=== PATIENT | male | born 1965 | race Caucasian/White ===

== ENCOUNTER 2020-04-13 18:04 | Emergency (ER) | payer OTHER ==
--- OUTSIDE RECORDS SUMMARY | 2020-04-13 18:06 | XMS REPORT | Summary of Care ---
:1965 Author Organization [facility] - Health Address [address] [place] [address] Care Team Providers Name Role Phone MD Keya Primary Care Provider Encounter Details Date Type Department Care Team Description 01/14/2020 Orders Only [facility] Doctor Unassigned, No [address] [facility] [place] [address] [address] [place] [address] Allergies No Known Allergiesdocumented as of this encounter (statuses as of 01/20/2020) Medications Medication Sig Dispensed Refills Start Date End Date Status albuterol 90 Inhale 2 Puffs 8.5 g 0 06/13/2017 A ctive mcg/actuation every 6 (six) inhalerIndications: hours as needed Dyspnea, unspecified type for Wheezing or Shortness of Breath. Compression Socks, Medium xtra large 1 Each 2 10/24/2017 Active Misc compression socks gemfibrozil 600 mg Take 1 tablet by 60 tablet 3 10/24/2017 Active tabletIndications: mouth 2 (two) Hypertriglyceridemia times daily before breakfast and dinner. losartan-hydrochlorothiaz Take 1 tablet by 90 tablet 3 018 Active ulis 50-12.5 mg per mouth daily. tabletIndications: Hypertension, unspecified type metFORMIN 1,000 mg Take 1 tablet by 180 tablet 2 10/24/2017 Active tabletIndications: mouth 2 (two) Diabetes mellitus type 2 times daily with in obese meals. terbinafine HCl 250 mg Take 1 tablet by 30 tablet 1 12/24/2017 Active tabletIndications: Tinea mouth daily. pedis of both feet furosemide 20 mg tablet Take 1 tablet by 90 tablet 0 10/23/201 8 Active mouth daily. atorvastatin 40 mg tablet Take 40 mg by 0 02/11/2019 Active mouth daily. glipiZIDE 5 mg tablet TAKE 1 TABLET BY 0 02/11/2019 Active MOUTH TWICE A DAY 30 MINUTES BEFORE MEALS diclofenac 75 mg EC Take 1 tablet by 60 tablet 0 01/12/2020 Active tabletIndications: mouth 2 (two) 20 Primary osteoarthritis of times daily with left knee meals for 30 days. documented as of this encounter (statuses as of 01/20/2020) Active Problems No known active problemsdocumented as of this encounter (statuses as of 01/20/2020) Social History Tobacco Use Types Packs/Day Years Used Date Former Smoker Cigars 10 Smokeless Tobacco: Never Used Alcohol Use Drinks/Week oz/Week Comments Yes 6 Standard drinks or equivalent 6.0 Sex Assigned at Date Recorded Not on file COVID-19 Exposure Response Date Recorded In the last month, have you been in contact with No / Unsure 01/11/2020 4:23 PM CDT someone who was confirmed or suspected to have Coronavirus / COVID-19? documented as of this encounter Last Filed Vital Signs Not on filedocumented in this encounter Plan of Treatment Health Maintenance Due Date Last Done Comments DTaP,Tdap,and Td Vaccines (1 - 1984 Tdap) COLON CANCER SCREENING ANNUAL 01/01/2016 FIT/FOBT COLON CANCER SCREENING FIT DNA 01/01/2016 EVERY 3 YEARS COLON CANCER SCREENING 01/01/2016 SIGMOIDOSCOPY EVERY 5 YEARS Zoster Recombinant Vaccine 01/01/2016 (SHINGRIX) (1 of 2) INFLUENZA VACCINE (#1) 2019 Depression Screening 04/19/2020 04/19/2019 COLONOSCOPY 02/14/2027 02/14/2017 (Declined) Colorectal Cancer Screening 02/14/2027 PNEUMOCOCCAL 0-64 YEARS Aged Out No longe r eligible based COMBINED SERIES on patient's age to complete this to [facility] documented as of this encounter Procedures Procedure Name Priority Date/Time Associated Diagnosis Comme nts MEDICAL Routine 01/14/2020 12:01 AM CDT RELEASE/CLEARANCE FORMS documented in this encounter Results Not on filedocumented in this encounter Insurance Payer Benefit Plan Subscriber ID Effective Dates Phone Address Type / Group [id number] [phone] [address] PPO/POS [place] - OUT OF t [id number] [place] [address] documented as of this encounter
--- OUTSIDE RECORDS SUMMARY | 2020-04-13 18:06 | XMS REPORT | Summary of Care ---
:1965 Author Organization [facility] Address [address] [place] [address] Care Team Providers Name Role Phone MD Keya Primary Care Provider Reason for Visit Reason Comments Refill Request Encounter Details Date Type Department Care Team Description 02/03/2020 Refill [facility] Orthopaedic Bisi Durant S, PAC Refill Request Surgery- [place] [address] [facility] [address] [facility], [place] [address] [place] [address] [phone] Allergies No Known Allergiesdocumented as of this encounter (statuses as of 02/03/2020) Medications Medication Sig Dispensed Refills Start End Status Date Date albuterol 90 Inhale 2 Puffs 8.5 g 0 06/13/19 Ac tive mcg/actuation every 6 (six) 18 inhalerIndications: hours as Dyspnea, unspecified needed for type Wheezing or Shortness of Breath. Compression Socks, xtra large 1 Each 2 10/25/19 Active Medium Misc compression 18 socks gemfibrozil 600 mg Take 1 tablet 60 tablet 3 10/25/19 Active tabletIndications: by mouth 2 18 Hypertriglyceridemia (two) times daily before breakfast and dinner. losartan-hydrochlorothia Take 1 tablet 90 tablet 3 10/25/19 Active zide 50-12.5 mg per by mouth 18 tabletIndications: daily. Hypertension, unspecified type metFORMIN 1,000 mg Take 1 tablet 180 tablet 2 10/25/19 Active tabletIndications: by mouth 2 18 Diabetes mellitus type 2 (two) times in obese daily with meals. terbinafine HCl 250 mg Take 1 tablet 30 tablet 1 12/25/19 Active tabletIndications: Tinea by mouth 18 pedis of both feet daily. furosemide 20 mg tablet Take 1 tablet 90 tablet 0 02/20/20 Active by mouth 18 daily. atorvastatin 40 mg Take 40 mg by 0 02/12/20 Active tablet mouth daily. 19 glipiZIDE 5 mg tablet TAKE 1 TABLET 0 02/12/20 Active BY MOUTH TWICE 19 A DAY 30 MINUTES BEFORE MEALS DICLOFENAC 75 mg EC TAKE 1 TABLET 60 tablet 0 02/03/20 Active tabletIndications: BY MOUTH 2 20 Primary osteoarthritis (TWO) TIMES of left knee DAILY WITH MEALS. diclofenac 75 mg EC Take 1 tablet 60 tablet 0 01/12/20 Discontinued tabletIndications: by mouth 2 20 020 Primary osteoarthritis (two) times of left knee daily with meals for 30 days. documented as of this encounter (statuses as of 02/03/2020) Active Problems No known active problemsdocumented as of this encounter (statuses as of 02/03/2020) Social History Tobacco Use Types Packs/Day Years [...] on patient's age to complete this to pic documented as of this encounter Results Not on filedocumented in this encounter Visit Diagnoses Diagnosis Primary osteoarthritis of left knee Primary localized osteoarthrosis, lower leg documented in this encounter Insurance Payer Benefit Plan Subscriber ID Effective Dates Phone Address Type / Group [facility] [id number] 2018-[place] [phone] [address] PPO/POS [place] - OUT OF t 87 [id number] [place] [address] documented as of this encounter
--- OUTSIDE RECORDS SUMMARY | 2020-04-13 18:07 | XMS REPORT | Continuity of Care Document ---
:[address] [facility] t Address [address] [place] [address] Care Team Providers Name Role Phone Nikolai Archer Attending Clinician Doctor Unassigned, Name Attending Clinician Unavailable Provider, Urgent Care Attending Clinician Unavailable Singer KERN Attending Clinician Problems This patient has no known problems. Allergies, Adverse Reactions, Alerts This patient has no known allergies or adverse reactions. Medications This patient has no known medications. Procedures This patient has no known procedures. Encounters Start End Encounter Admission Attending Care Care Encounter Source Date/Time Date/Time Type Type Clinicians Facility Department ID 2020-02-03 2020-02-03 Refill HENRIETTA Durant [id number] 00:00:00 00:00:00 [facility] [id number] Surgical [id number] Specialti [phone] [address] [place] 2020-01-14 2020-01-14 Orders Doctor JENNIFER [id number] 12 00:00:00 00:00:00 Only Unassigned, LISA [id number] [place] [facility] [id number] [id number] 2020-01-11 2020-01-11 Urgent ProviderHENRIETTA [id number] 16:19:08 17:05:12 Care [facility] [id number] Care [place] [id number] Professio [phone] nal [address] 2019-06-02 2019-06-02 Emergency [place] [facility] [id number] 05:43:39 07:01:00 Tej Carrera [id number] [place] [id number] [place] [phone] 084 Results This patient has no known results.
[2020-04-13 18:37] LABS: Absolute Lymphocytes (CBC) 1.9 K/uL (0.7-4.9); Basophils % 0.7 % (0-1.3); Lymphocytes % 26.4 % (15.3-44.8); MPV 9.7 fL (7.6-11.3); RBC Red Blood Cell Count 4.78 M/uL (4.33-5.43)
[2020-04-13] MEDS ORDERED: METHYLPREDNISOLONE 125 MG INJ ONE (18:43)
[2020-04-13] MEDS ORDERED: NA CHLORIDE 0.9% 1,000 ML ONE (18:44)
[2020-04-13] MEDS ORDERED: FAMOTIDINE 20 MG/2 ML VIAL IV ONE (18:44)
[2020-04-13] MEDS ORDERED: DIPHENHYDRAMINE 50 MG/ML VIAL ONE (18:44)
[2020-04-13 18:53] LABS: BUN Blood Urea Nitrogen 13 mg/dL (7-18); Bicarbonate 32 mmol/L (21-32); Glucose Level 227 mg/dL (74-106); Potassium 3.8 mmol/L (3.5-5.1); Sodium Level 142 mmol/L (136-145)
--- NOTE | 2020-04-13 19:49 | RAD REPORT ---
EXAM DESCRIPTION: CT - Head Brain Wo Cont - 04/13/2020 7:33 pm CLINICAL HISTORY: Headache COMPARISON: None. TECHNIQUE: Computed axial tomography of the head was obtained. IV contrast was not requested. All CT scans are performed using dose optimization technique as appropriate and may include automated exposure control or mA/KV adjustment according to patient size. FINDINGS: An intracranial bleed is not seen . The ventricles are normal in caliber. No extra-axial fluid collection is noted. Fluid within the sinuses/ mastoids is not seen. IMPRESSION: No acute intracranial abnormality is seen. If patient's symptoms persist MRI of the bra in would be recommended.
[2020-04-13] MEDS ORDERED: ALBUTEROL 2.5 MG/3 ML NEB SOL ONE (20:17)
[2020-04-13] MEDS ORDERED: MECLIZINE HCL 12.5 MG TAB ONE (20:17)
--- NOTE | 2020-04-13 20:28 | EDPHYS ---
Physician Documentation [facility] Name: Hilton Macdonald Age: 54 yrs Sex: Male : 1965 Arrival Date: 04/13/2020 Time: 18:07 Bed 5 Private MD: ED Physician Edwin Dee HPI: 04/13 20:59 This 54 yrs old Male presents to ER via EMS with complaints of Allergic kb Reaction. 20:59 The patient presents with dizziness, feels throat is swollen. Onset: The kb symptoms/episode began/occurred just prior to arrival. Associated signs and symptoms: Pertinent positives: light headed, swelling. Possible causes: At home the patient or guardian has treated the symptoms with nothing. Severity of symptoms: At their worst the symptoms were mild moderate in the emergency department the symptoms are unchanged. The patient has not experienced similar symptoms in the past. The patient has not recently seen a physician. Pt reports allergic reaction to Ozympic. States he was at work and started feeling lightheaded, dizzy and like his throat was closing up. EMT reports pt had wheezing from his throat when they arrived, but that has since resolved. Pt reports dizziness when he turns his head. States it still feels like his throat is swollen, but it is getting better. . Historical: - Allergies: 18:11 No Known Drug Allergies; sv - Home Meds: 18:25 ozempic [Active]; ph - PMHx: 18:11 LEG CRAMPS; Obesity; sv 18:25 Diabetes - NIDDM; ph - PSHx: 18:11 Appendectomy; Knee surgery; sv - Immunization history:: Adult Immunizations unknown. - Social history:: Smoking status: Patient denies any tobacco usage or history of. ROS: 20:59 Constitutional: Negative for fever, chills, and weight loss, Cardiovascular: Negative kb for chest pain, palpitations, and edema, Abdomen/GI: Negative for abdominal pain, nausea, vomiting, diarrhea, and constipation, Back: Negative for injury and pain, MS/Extremity: Negative for injury and deformity, Skin: Negative for injury, rash, and discoloration. 20:59 ENT: Positive for throat swelling. 20:59 Respiratory: Positive for shortness of breath. 20:59 Neuro: Positive for dizziness. Exam: 21:03 Constitutional: This is a well developed, well nourished patient who is awake, alert, kb and in no acute distress. Head/Face: Normocephalic, atraumatic. Eyes: Pupils equal round and reactive to light, extra-ocular motions intact. Lids and lashes normal. Conjunctiva and sclera are non-icteric and not injected. Cornea within normal limits. Periorbital areas with no swelling, redness, or edema. ENT: Nares patent. No nasal discharge, no septal abnormalities noted. Tympanic membranes are normal and external auditory canals are clear. Oropharynx with no redness, swelling, or masses, exudates, or evidence of obstruction, uvula midline. Mucous membranes moist. Neck: Trachea midline, no thyromegaly or masses palpated, and no cervical lymphadenopathy. Supple, full range of motion without nuchal rigidity, or vertebral point tenderness. No Meningismus. Chest/axilla: Normal chest wall appearance and motion. Nontender with no deformity. No lesions are appreciated. Cardiovascular: Regular rate and rhythm with a normal S1 and S2. No gallops, murmurs, or rubs. Normal PMI, no JVD. No pulse deficits. Respiratory: Lungs have equal breath sounds bilaterally, clear to auscultation and percussion. No rales, rhonchi or wheezes noted. No increased work of breathing, no retractions or nasal flaring. Abdomen/GI: Soft, non-tender, with normal bowel sounds. No distension or tympany. No guarding or rebound. No evidence of tenderness throughout. Skin: Warm, dry with normal turgor. Normal color with no rashes, no lesions, and no evidence of cellulitis. MS/ Extremity: Pulses equal, no cyanosis. Neurovascular intact. Full, normal range of motion. Neuro: Awake and alert, GCS 15, oriented to person, place, time, and situation. Cranial nerves II-XII grossly intact. Motor strength 5/5 in all extremities. Sensory grossly intact. Cerebellar exam normal. Normal gait. Vital Signs: 18:23 BP 152 / 91; Pulse 90; Resp 20; Temp 98.0; Pulse Ox 95% on R/A; Weight 179.17 kg; ph Height 5 ft. 10 in. (177.80 cm); 18:51 BP 135 / 71; Pulse 79; Resp 18; Pulse Ox 94% on R/A; ph 18:23 Body Mass Index 56.68 (179.17 kg, 177.80 cm) ph MDM: 18:08 Patient medically screened. kb 21:04 Data reviewed: vital signs, nurses notes. Data interpreted: Pulse oximetry: on room air kb is 94 %. Interpretation: normal. Counseling: I had a detailed discussion with the patient and/or guardian regarding: the historical points, exam findings, and any diagnostic results supporting the discharge/admit diagnosis, lab results, radiology results, the need for outpatient follow up, a family practitioner, to return to the emergency department if symptoms worsen or persist or if there are any questions or concerns that arise at home. ED course: Pt feeling better after treatmetn. 04/13 18:09 Order name: CBC with Diff; Complete Time: 18:49 kb 04/13 18:09 Order name: Basic Metabolic Panel; Complete Time: 18:54 kb 04/13 18:58 Order name: CT Head Brain wo Cont; Complete Time: 19:51 kb 04/13 18:09 Order name: IV Start; Complete Time: 18:28 kb Administered Medications: 18:48 Drug: SOLU-Medrol 125 mg Route: IVP; Site: right antecubital; ph 18:48 Drug: Benadryl 12.5 mg Route: IVP; Site: right antecubital; ph 18:48 Drug: Pepcid 20 mg Route: IVP; Site: right antecubital; ph 18:48 Drug: NS 0.9% 1000 ml Route: IV; Rate: 1000 ml; Site: right antecubital; ph 20:04 Drug: Albuterol 2.5 mg Route: Inhalation; mg2 20:05 Drug: Meclizine 25 mg Route: PO; mg2 Disposition: 04/14 11:55 Co-signature as Attending Physician, Edwin Dee MD I agree with the assessment and neil plan of care. Disposition: 04/13/20 20:27 Discharged to Home. Impression: Dizziness and giddiness, Headache. - Condition is Stable. - Discharge Instructions: Vertigo, Nwok-bd-Dtay, General Headache Without Cause, Eklg-gy-Cksa, Dizziness, Qssw-aa-Gkvs. - Prescriptions for Meclizine 25 mg Oral Tablet - take 1 tablet by ORAL route every 8 hours As needed; 30 tablet. Prednisone 20 mg Oral Tablet - take 1 tablet by ORAL route once daily for 5 days; 5 tablet. Albuterol Sulfate 90 mcg/actuation - inhale 1-2 puff by INHALATION route every 4-6 hours; 1 Inhaler. - Medication Reconciliation Form, Thank You Letter, Antibiotic Education, Prescription Opioid Use form. - Follow up: Emergency Department; When: As needed; Reason: Worsening of condition. Follow up: Private Physician; When: 2 - 3 days; Reason: Recheck today's complaints, Continuance of care, Re-evaluation by your physician. Signatures: Dispatcher [employer] EDMS Celina Castaneda, SILVINO-C TELEVISION SERVICE ENGINEER-Kerrie Bryson, RN RN Edwin Dee MD MD cha Hall, Patricia, RN RN Vickey Lemos mw2 Perez Guillermo RN RN mg2 Corrections: (The following items were deleted from the chart) 04/13 20:47 20:27 04/13/2020 20:27 Discharged to Home. Impression: Dizziness and giddiness; mw2 Headache. Condition is Stable. Forms are Medication Reconciliation Form, Thank You Letter, Antibiotic Education, Prescription Opioid Use. Follow up: Emergency Department; When: As needed; Reason: Worsening of condition. Follow up: Private Physician; When: 2 - 3 days; Reason: Recheck today's complaints, Continuance of care, Re-evaluation by your physician. kb
--- NOTE | 2020-04-13 20:28 | ER ---
Nurse's Notes [facility] [place] Name: Hilton Macdonald Age: 54 yrs Sex: Male : 1965 Arrival Date: 04/13/2020 Time: 18:07 Bed 5 Private MD: Diagnosis: Dizziness and giddiness;Headache Presentation: 04/13 18:07 Chief complaint: EMS states: called out for possible allergic reaction to Ozempic IM sv today. He takes it weekly and this week his MD increased his dose. He feels like his throat is swelling. BP 1497 HR-86 100% NRB but not on O2 at this time. BS-234. Coronavirus screen: Client denies travel out of the [place] in the last 14 days. At this time, the client does not indicate any symptoms associated with coronavirus-19. Ebola Screen: No symptoms or risks identified at this time. Onset: The symptoms/episode began/occurred suddenly, 40 minute(s) ago. Anaphylaxis evaluation, the patient reports or I have noted the following symptoms which indicate a significant risk of anaphylaxis:. Risk Assessment: Do you want to hurt yourself or someone else? Patient reports no desire to harm self or others. Onset of symptoms was April 13, 2020. 18:07 Method Of Arrival: EMS: [facility] sv 18:07 Acuity: RUDY 3 sv 18:49 Initial Sepsis Screen: Does the patient meet any 2 criteria? No. Patient's initial ph sepsis screen is negative. Does the patient have a suspected source of infection? No. Patient's initial sepsis screen is negative. Historical: - Allergies: 18:11 No Known Drug Allergies; sv - Home Meds: 18:25 ozempic [Active]; ph - PMHx: 18:11 LEG CRAMPS; Obesity; sv 18:25 Diabetes - NIDDM; ph - PSHx: 18:11 Appendectomy; Knee surgery; sv - Immunization history:: Adult Immunizations unknown. - Social history:: Smoking status: Patient denies any tobacco usage or history of. Screenin:49 Abuse screen: Denies threats or abuse. Denies injuries from another. Nutritional ph screening: No deficits noted. Tuberculosis screening: No symptoms or risk factors identified. Fall Risk None identified. Assessment: 18:50 General: Appears in no apparent distress. comfortable, obese, well groomed, Behavior is ph calm, cooperative, appropriate for age, Denies fever, chills. Pain: Denies pain. Neuro: Level of Consciousness is awake, alert, obeys commands, Oriented to person, place, time, situation, Reports blurred vision dizziness, weakness. Cardiovascular: Capillary refill < 3 seconds in bilateral fingers Patient's skin is warm and dry. Respiratory: Reports shortness of breath "tightness in throat" Airway is patent Respiratory effort is even, unlabored, Respiratory pattern is regular, symmetrical. GI: No signs and/or symptoms were reported involving the gastrointestinal system. Derm: Skin is intact, Skin is pink, warm \\T\\ dry. Musculoskeletal: Circulation, motion, and sensation intact. Range of motion: intact in all extremities. Vital Signs: 18:23 BP 152 / 91; Pulse 90; Resp 20; Temp 98.0; Pulse Ox 95% on R/A; Weight 179.17 kg; ph Height 5 ft. 10 in. (177.80 cm); 18:51 BP 135 / 71; Pulse 79; Resp 18; Pulse Ox 94% on R/A; ph 18:23 Body Mass Index 56.68 (179.17 kg, 177.80 cm) ph ED Course: 18:07 Patient arrived in ED. sv 18:08 Cel[facility]C [facility] kb 18:08 Edwin Dee MD is Attending Physician. kb 18:09 Alena Treviño, SWEETIE is Primary Nurse. ph 18:11 Triage completed. sv 18:11 Arm band placed on. sv 18:28 Patient has correct armband on for positive identification. Placed in gown. Bed in low mh5 position. Call light in reach. Side rails up X 1. operations representative on. Pulse ox on. NIBP on. 18:28 CBC with Diff Sent. mh5 18:28 Basic Metabolic Panel Sent. 5 18:28 Initial lab(s) drawn, by me, sent to lab. Inserted saline lock: 20 gauge in right 5 antecubital area, using aseptic technique. Blood collected. 19:32 CT Head Brain wo Cont In Process Unspecified. EDMS Administered Medications: 18:48 Drug: SOLU-Medrol 125 mg Route: IVP; Site: right antecubital; ph 18:48 Drug: Benadryl 12.5 mg Route: IVP; Site: right antecubital; ph 18:48 Drug: Pepcid 20 mg Route: IVP; Site: right antecubital; ph 18:48 Drug: NS 0.9% 1000 ml Route: IV; Rate: 1000 ml; Site: right antecubital; ph 20:04 Drug: Albuterol 2.5 mg Route: Inhalation; mg2 20:05 Drug: Meclizine 25 mg Route: PO; mg2 Outcome: 20:27 Discharge ordered by . kb 20:47 Patient left the ED. mw2 Signatures: Dispatcher [employer] EDMS Celina Castaneda, SILVINO-C CALENDER MACHINE OPERATOR-Kerrie Bryson RN RN Alena Treviño RN RN Erica Duarte [facility] Vickey Lemos 2 Perez Guillermo RN RN mg2
[2020-04-15 20:40] VITALS: TEMP 98
[2020-04-15 21:02] VITALS: BP 135/71; O2SAT 94
== END 2020-04-13 20:47 | disposition home or self-care (01) ==
LOC: ER 18:04
DX: R51.9 Headache, unspecified (principal); E11.9 Type 2 diabetes mellitus without complications; E66.9 Obesity, unspecified
CPT/HCPCS: 85025; 80048; 36415; 70450; 96375; 96374; 99285; J1200; J7030; J2930

== ENCOUNTER 2020-04-21 19:50 | Observation (INO) | payer OTHER ==
--- OUTSIDE RECORDS SUMMARY | 2020-04-21 19:52 | XMS REPORT | Continuity of Care Document ---
:1965 Author Organization [facility] t Address [address] [place] [address] Care Team Providers Name Role Phone Nikolai Arhcer Attending Clinician Doctor Unassigned, Name Attending Clinician [...] ID 2020-02-03 2020-02-03 Refill HENRIETTA Durant [id number] 00:00:00 00:00:00 [facility] [id number] Surgical [id number] Specialti [phone] [address] [place] 2020-01-14 2020-01-14 Orders Doctor JENNIFER [id number] 00:00:00 00:00:00 Only UnassignedLISA [id number] [place] [facility] [id number] 2020-01-11 2020-01-11 Urgent ProviderHENRIETTA [id number] 16:19:08 17:05:[address] [facility] [id number] Care [place] [id number] Professio [phone] nal [address] 2019-06-02 2019-06-02 Emergency [facility] [id number] 05:43:39 07:01:00 Tej Carrera [id number] [place] [id number] [place] [phone] [id number] Results This patient has no known results.
[2020-04-21 21:11] LABS: Absolute Lymphocytes (CBC) 2.8 K/uL (0.7-4.9); Basophils % 0.7 % (0-1.3); Hematocrit 44.5 % (39.6-49.0); Lymphocytes % 26.8 % (15.3-44.8); MPV 10.3 fL (7.6-11.3); RBC Red Blood Cell Count 5.08 M/uL (4.33-5.43)
[2020-04-21 21:31] LABS: ALT/SGPT 37 U/L (12-78); AST/SGOT 17 U/L (15-37); Albumin 3.7 g/dL (3.4-5.0); Alkaline Phosphatase 92 U/L (45-117); BUN Blood Urea Nitrogen 14 mg/dL (7-18); Bicarbonate 30 mmol/L (21-32); Bilirubin Direct 0.2 mg/dL (0-0.2); Bilirubin Total 0.7 mg/dL (0.2-1.0); Glucose Level 180 mg/dL (74-106); Magnesium 2.1 mg/dL (1.8-2.4); NT PRO-BNP 66 pg/mL (<125); Potassium 3.8 mmol/L (3.5-5.1); Protein, Total 7.5 g/dL (6.4-8.2); Sodium Level 141 mmol/L (136-145); Troponin (Emerg Dept Use Only) < 0.02 ng/mL (0.0-0.045)
[2020-04-21 21:35] LABS: Protime INR 1.08
[2020-04-21] MEDS ORDERED: HYDROCODONE/APAP 10/325 TAB ONE (21:42)
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
--- NOTE | 2020-04-21 22:30 | EDPHYS ---
Physician Documentation [facility] Name: Hilton Macdonald Age: 54 yrs Sex: Male : 1965 Arrival Date: 04/21/2020 Time: 19:51 Bed 5 Private MD: ED Physician Gavin Kruger HPI: 04/21 22:28 This 54 yrs old Male presents to ER via Ambulatory with complaints of Chest ma2 Pain, Headache. 22:28 The patient or guardian reports chest pain that is located primarily in the substernal ma2 area. Onset: gradually, 1 day(s) ago. Associated signs and symptoms: Pertinent negatives: cough, lower extremity pain, lightheadedness, near syncope. Severity of pain: At its worst the pain was mild in the emergency department the pain is unchanged. The patient has experienced similar episodes in the past. Historical: - Allergies: 20:12 No Known Drug Allergies; ll1 - PMHx: 20:12 Diabetes - NIDDM; LEG CRAMPS; Obesity; ll1 - PSHx: 20:12 Appendectomy; Knee surgery; ll1 - Immunization history:: Flu vaccine is up to date. - Social history:: Smoking status: Patient denies any tobacco usage or history of. - Family history:: not pertinent. ROS: 22:28 Constitutional: Negative for fever, chills, and weight loss. ma2 22:28 All other systems are negative. Exam: 22:28 Constitutional: This is a well developed, well nourished patient who is awake, alert, ma2 and in no acute distress. Head/Face: Normocephalic, atraumatic. Eyes: Pupils equal round and reactive to light, extra-ocular motions intact. Lids and lashes normal. Conjunctiva and sclera are non-icteric and not injected. Cornea within normal limits. Periorbital areas with no swelling, redness, or edema. ENT: Nares patent. No nasal discharge, no septal abnormalities noted. Tympanic membranes are normal and external auditory canals are clear. Oropharynx with no redness, swelling, or masses, exudates, or evidence of obstruction, uvula midline. Mucous membranes moist. Neck: Trachea midline, no thyromegaly or masses palpated, and no cervical lymphadenopathy. Supple, full range of motion without nuchal rigidity, or vertebral point tenderness. No Meningismus. Chest/axilla: Normal chest wall appearance and motion. Nontender with no deformity. No lesions are appreciated. Cardiovascular: Regular rate and rhythm with a normal S1 and S2. No gallops, murmurs, or rubs. Normal PMI, no JVD. No pulse deficits. Respiratory: Lungs have equal breath sounds bilaterally, clear to auscultation and percussion. No rales, rhonchi or wheezes noted. No increased work of breathing, no retractions or nasal flaring. Abdomen/GI: Soft, non-tender, with normal bowel sounds. No distension or tympany. No guarding or rebound. No evidence of tenderness throughout. MS/ Extremity: Pulses equal, no cyanosis. Neurovascular intact. Full, normal range of motion. Neuro: Awake and alert, GCS 15, oriented to person, place, time, and situation. Cranial nerves II-XII grossly intact. Motor strength 5/5 in all extremities. Sensory grossly intact. Cerebellar exam normal. Normal gait. Vital Signs: 20:12 BP 125 / 83; Pulse 86; Resp 18; Temp 98.2; Pulse Ox 96% on R/A; Weight 177.81 kg; ll1 Height 5 ft. 10 in. (177.80 cm); Pain 4/10; 21:01 BP 137 / 79; Pulse 86; Resp 18; Pulse Ox 97% on R/A; mg2 21:45 BP 123 / 75; Pulse 76; Resp 14; Pulse Ox 95% on R/A; rv 04/22 00:12 BP 127 / 85; Pulse 76; Resp 15; Pulse Ox 97% on R/A; rv 04/21 20:12 Body Mass Index 56.25 (177.81 kg, 177.80 cm) ll1 MDM: 04/21 20:58 Patient medically screened. ma2 22:28 Differential diagnosis: cholecystitis, gastroesophageal reflux disease (GERD), ma2 pancreatitis, stable angina. The patient was given aspirin in the Emergency Department. CARLOS Risk Score: 1 - Three or more CAD risk factors. Data reviewed: vital signs, nurses notes. 04/21 20:58 Order name: Basic Metabolic Panel; Complete Time: 21:58 mg2 04/21 20:58 Order name: CBC with Diff; Complete Time: 21:58 mg2 04/21 20:58 Order name: LFT's; Complete Time: 21:58 mg2 04/21 20:58 Order name: Magnesium; Complete Time: 21:58 mg2 04/21 20:58 Order name: NT PRO-BNP; Complete Time: 21:58 mg2 04/21 20:58 Order name: PT-INR; Complete Time: 21:58 mg2 04/21 20:58 Order name: Troponin (emerg Dept Use Only); Complete Time: 21:58 mg2 04/21 23:15 Order name: SARS-COV-2 RT PCR EDMS 04/22 03:04 Order name: Troponin I EDMS 04/22 05:00 Order name: CBC with Automated Diff EDMS 04/22 05:14 Order name: Basic Metabolic Panel EDMS 04/22 05:14 Order name: Lipid Profile EDMS 04/22 05:14 Order name: T4 Free EDMS 04/21 20:27 Order name: EKG; Complete Time: 20:28 sg 04/21 20:58 Order name: XRAY Chest (1 view) mg2 04/21 20:58 Order name: EKG; Complete Time: 20:59 mg2 04/21 20:58 Order name: Cardiac monitoring; Complete Time: 20:58 mg2 04/21 20:58 Order name: EKG - Nurse/Tech; Complete Time: 20:58 mg2 04/21 20:58 Order name: IV Saline Lock; Complete Time: 20:58 mg2 04/21 20:58 Order name: Labs collected and sent; Complete Time: 20:58 mg2 04/21 20:58 Order name: O2 Per Protocol; Complete Time: 20:58 mg2 04/21 20:58 Order name: O2 Sat Monitoring; Complete Time: 20:58 mg2 04/22 05:14 Order name: Magnesium EDHI 04/22 05:14 Order name: Thyroid Stimulating Hormone EDMS 04/22 05:28 Order name: Hemoglobin A1c EDMS 04/22 06:26 Order name: CT Head Brain wo Cont mg2 04/22 08:14 Order name: CT EDMS Administered Medications: 21:29 Drug: [place] 10 mg-325 mg 1 tabs Route: PO; mg2 04/22 00:59 Follow up: Response: No adverse reaction mg2 04/21 22:20 Drug: Aspirin Chewable Tablet 324 mg Route: PO; mg2 04/22 00:59 Follow up: Response: No adverse reaction mg2 Disposition: 04/21/20 22:29 Hospitalization ordered by Jacinto Pires for Observation. Preliminary diagnosis is Chest pain, unspecified. - Bed requested for Telemetry/MedSurg (observation). - Status is Observation. aa5 - Condition is Stable. - Problem is new. - Symptoms are unchanged. Signatures: Dispatcher [employer] EDHI Rosibel Duval RN SWEETIE dw Vanessa Dyson, RN RN aa5 Flaquito Del Toro RN RN ja1 Gavin Kruger MD MD ma2 Perez Guillermo RN RN mg2 Domenic Martini RN RN ll1 Corrections: (The following items were deleted from the chart) 04/21 22:17 21:05 CORONAVIRUS+MR.LAB.BRZ ordered. [facility] 23:15 22:29 Hospitalization Ordered by Jacinto Pires DO for Observation. Preliminary dw diagnosis is Chest pain, unspecified. Bed requested for Telemetry/MedSurg (observation). Status is Observation. Condition is Stable. Problem is new. Symptoms are unchanged. ma2 04/22 07:10 04/21 23:15 04/21/2020 22:29 Hospitalization Ordered by Jacinto Pires DO for ja1 Observation. Preliminary diagnosis is Chest pain, unspecified. Bed requested for [facility] ER HOLD. Status is Observation. Condition is Stable. Problem is new. Symptoms are unchanged. dw 04/22 08:22 07:10 04/21/2020 22:29 Hospitalization Ordered by Jacinto Pires DO for Observation. aa5 Preliminary diagnosis is Chest pain, unspecified. Bed requested for Telemetry/MedSurg (observation). Status is Observation. Condition is Stable. Problem is new. Symptoms are unchanged. ja1 08:45 08:22 04/21/2020 22:29 Hospitalization Ordered by Jacinto Pires DO for Observation. aa5 Preliminary diagnosis is Chest pain, unspecified. Bed requested for Telemetry/MedSurg (observation). Status is Observation. Condition is Stable. Problem is new. Symptoms are unchanged. aa5
[2020-04-21] MEDS ORDERED: ASPIRIN 81 MG CHEWABLE TABLET ONE (22:31)
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
[2020-04-22] MEDS ORDERED: MORPHINE 2 MG/ML SYR IV PRN (00:19)
[2020-04-22] MEDS ORDERED: ACETAMINOPHEN 500 MG TAB PO PRN (00:19)
[2020-04-22] MEDS ORDERED: ONDANSETRON 4 MG/2 ML VIAL IV PRN (00:19)
[2020-04-22 00:33] VITALS: O2SAT 100; BMI 56.3
[2020-04-22 04:56] LABS: Absolute Lymphocytes (CBC) 2.9 K/uL (0.7-4.9); Basophils % 0.5 % (0-1.3); Hematocrit 40.4 % (39.6-49.0); Lymphocytes % 36.9 % (15.3-44.8); MPV 10.4 fL (7.6-11.3); RBC Red Blood Cell Count 4.55 M/uL (4.33-5.43)
[2020-04-22 05:14] LABS: BUN Blood Urea Nitrogen 13 mg/dL (7-18); Bicarbonate 29 mmol/L (21-32); Glucose Level 181 mg/dL (74-106); HDL Cholesterol 25 mg/dL (40-60); LDL Cholesterol, Calculated 65 (<130); Magnesium 2.1 mg/dL (1.8-2.4); Potassium 3.5 mmol/L (3.5-5.1); Sodium Level 142 mmol/L (136-145)
[2020-04-22] MEDS ORDERED: METOPROLOL TAR 25 MG TAB PO SCH (06:00)
[2020-04-22] MEDS ORDERED: POTASSIUM CL SA 10 MEQ TAB PO ONE ×2 (06:27→06:30)
[2020-04-22] MEDS ORDERED: METOPROLOL TAR 25 MG TAB ONE (06:27)
[2020-04-22] MEDS: INSULIN -REGULAR HUMAN 50 UNIT/0.5 ML ML SQ SCH ×2 (07:30→11:30)
--- NOTE | 2020-04-22 08:14 | RAD REPORT ---
EXAM DESCRIPTION: CT - Head Brain Wo Cont - 04/22/2020 7:01 am CLINICAL HISTORY: Headache COMPARISON: April 13, 2020 TECHNIQUE: Computed axial tomography of the head was obtained. IV contrast was not requested. All CT scans are performed using dose optimization technique as appropriate and may include automated exposure control or mA/KV adjustment according to patient size. FINDINGS: An intracranial bleed is not seen . The ventricles are normal in caliber. No extra-axial fluid collection is noted. Fluid within the sinuses/ mastoids is not seen. IMPRESSION: No acute intracranial abnormality is seen. If patient's symptoms persist MRI of the bra in would be recommended.
--- NOTE | 2020-04-22 08:20 | P.DS ---
Admission Date: 04/21/20 Discharge Date: 04/22/20 Primary Care Provider: Dr. Winter Disposition: ROUTINE DISCHARGE Discharge Condition: GOOD Reason for Admission: Chest pain Consultations: Cardiology Procedures: CXR: COMPARISON: 2013 FINDINGS: Right upper lobe mildly hazy. The left lung appears clear of acute infiltrate. The heart is normal size IMPRESSION: Right upper lobe is mildly hazy which may indicate a mild infiltrate CT scan: FINDINGS: An intracranial bleed is not seen . The ventricles are normal in caliber. No extra-axial fluid collection is noted. Fluid within the sinuses/ mastoids is not seen. IMPRESSION: No acute intracranial abnormality is seen. Follow up CXR: COMPARISON: April 21, 2020 FINDINGS: Mild right upper lobe opacity has partially resolved. Left lung appears clear. Heart is normal size Medical Problem List: Chest pain Right upper lobe pneumonia Hypertension Diabetes mellitus type 2 [id number] Mixed hyperlipidemia Obstructive sleep apnea Brief History of Present Illness: 54-year-old male with history of hypertension, diabetes mellitus type 2, hyperlipidemia, obesity presents the emergency department for chest pain. Patient reports that today around 1800 he was at work driving and began to have dizziness, chest pain. Patient reports pain is similar to being punched in the chest, nonradiating, associated with shortness of breath. Patient denies similar pain in the past. Only cardiac workup as an echocardiogram approximately 10 years prior. Patient was admitted to the hospital for further evaluation. Hospital Course: Patient presented with chest pain. Patient with significant history of obstructive sleep apnea, hypertension, hyperlipidemia and diabetes. Patient was admitted for further evaluation and treatment. Cardiology was consulted. So far cardiac enzymes unremarkable. Chest x-ray shows possible right upper lobe pneumonia. Patient reported cough and congestion. White count within normal range. Patient without fever. At discharge cardiology recommends follow up as an outpatient for further evaluation including echo and cardiac stress test. Due to possible right upper lobe pneumonia, the patient will be started on Augmentin 875 mg 1 pill twice daily for 7 days. Recommend to recheck chest x- ray in 2-4 weeks to monitor resolution. This could be done with the help of his PCP. Patient with diabetes mellitus type 2 hemoglobin A1c 9.4. Patient reports that he recently started a diabetic medication-Ozempic which caused allergic reaction. Patient came to the ER last week for this. This has resolved and medication has been discontinued. At discharge recommend to maintain blood sugars less 140 fasting and less than 200 after meals. Patient will continue with his current medication-Januvia 100 mg daily. Further adjustment in his medication can be done by his PCP for diabetic control. Patient with hypertension. This appears stable at this time. Patient reports patient was started on blood pressure medication. Blood pressures have been slightly low. Patient was started on metoprolol during the course of his stay. Will recommend to discontinue Edarbi which was started as an outpatient. Will recommend to continue with metoprolol 12.5 mg 1 pill twice daily. Monitor blood pressures daily. Recommend to maintain blood pressure less than 130/80. May need to hold medication if blood pressure systolic less than 110 or heart rate less than 50. Further adjustment can be done by his PCP. Patient reported severe headache. CT scan performed was unremarkable. This has improved. Recommend follow up with his PCP to further monitor and address. If this persists patient may benefit with neurology evaluation as an outpatient. Patient with obstructive sleep apnea. Patient has lost a significant amount await over the past year. Recommend follow up with pulmonology as an outpatient to further evaluate. Patient will likely require sleep study. This can be done with the help of his PCP. Patient with mixed hyperlipidemia. Triglycerides 193. LDL 45. At discharge patient will continue with his current medication-Vascepa 1 g twice daily and Lipitor 40 mg daily. Vital Signs/Physical Exam: Temp Pulse Resp BP Pulse Ox 98 F 81 17 113/55 L 100 04/22/20 04:00 04/22/20 06:00 04/22/20 04:00 04/22/20 06:00 04/22/20 04:00 General: Alert, In no apparent distress, Oriented x3, Cooperative HEENT: Atraumatic Neck: Supple Respiratory: Clear to auscultation bilaterally, Normal air movement Cardiovascular: Normal pulses, Regular rate/rhythm Gastrointestinal: Normal bowel sounds, Soft and benign, Non-distended, No tenderness, No masses, No rebound, No guarding Musculoskeletal: No erythema, No tenderness, No warmth Neurological: Normal speech, Normal strength at 5/5 x4 extr, Normal tone, Normal affect Laboratory Data at Discharge: WBC 7.9 K/uL (4.3-10.9) D 04/22/20 04:28 Hgb 13.4 g/dL (13.6-17.9) L 04/22/20 04:28 Hct 40.4 % (39.6-49.0) 04/22/20 04:28 Plt Count 113 K/uL (152-406) L 04/22/20 04:28 PT 12.7 SECONDS (9.5-12.5) H 04/21/20 21:00 INR 1.08 04/21/20 21:00 Sodium 142 mmol/L (136-145) 04/22/20 04:28 Potassium 3.5 mmol/L (3.5-5.1) 04/22/20 04:28 BUN 13 mg/dL (7-18) 04/22/20 04:28 Creatinine 0.72 mg/dL (0.55-1.3) 04/22/20 04:28 Glucose 181 mg/dL (74-106) H 04/22/20 04:28 Magnesium 2.1 mg/dL (1.8-2.4) 04/22/20 04:28 Total Bilirubin 0.7 mg/dL (0.2-1.0) 04/21/20 21:00 AST 17 U/L (15-37) 04/21/20 21:00 ALT 37 U/L (12-78) 04/21/20 21:00 Alkaline Phosphatase 92 U/L (45-117) 04/21/20 21:00 Troponin I < 0.02 ng/mL (0.0-0.045) 04/22/20 02:33 Triglycerides 193 mg/dL (<150) H 04/22/20 04:28 Cholesterol 129 mg/dL (<200) 04/22/20 04:28 HDL Cholesterol 25 mg/dL (40-60) L 04/22/20 04:28 Cholesterol/HDL Ratio 5.16 04/22/20 04:28 Home Medications: Acetaminophen/Diphenhydramine [Tylenol Pm Ex-Strength Caplet] 1 tab PO DAILY 04/22/20 Amoxicillin/Potassium Clav [Augmentin 875-125 Tablet] 1 each PO BID #14 tablet 04/22/20 Atorvastatin Calcium [Lipitor] 40 mg PO DAILY 04/22/20 Icosapent Ethyl [Vascepa] 1 gm PO BID 04/22/20 Metoprolol Tartrate [Lopressor*] 12.5 mg PO BID 6AM 6PM #60 tab 04/22/20 Sitagliptin Phosphate [Januvia*] 100 mg PO DAILY 04/22/20 New Medications: Amoxicillin/Potassium Clav [Augmentin 875-125 Tablet] 1 each PO BID #14 tablet Metoprolol Tartrate [Lopressor*] 12.5 mg PO BID 6AM 6PM #60 tab Patient Discharge Instructions: 1. Recommend follow up with PCP in 1 week to follow up this hospitalization. 2. Patient presented with chest pain. Patient with significant history of obstructive sleep apnea, hypertension, hyperlipidemia and diabetes. Patient was admitted for further evaluation and treatment. Cardiology was consulted. So far cardiac enzymes unremarkable. Chest x-ray shows possible right upper lobe pneumonia. Patient reported cough and congestion. White count within normal range. Patient without fever. At discharge cardiology recommends follow up as an outpatient for further evaluation including echo and cardiac stress test. Due to possible right upper lobe pneumonia, the patient will be started on Augmentin 875 mg 1 pill twice daily for 7 days. Recommend to recheck chest x-ray in 2-4 weeks to monitor resolution. This could be done with the help of his PCP. 3. Patient with diabetes mellitus type 2 hemoglobin A1c 9.4. Patient reports that he recently started a diabetic medication-Ozempic which caused allergic reaction. Patient came to the ER last week for this. This has resolved and medication has been discontinued. At discharge recommend to maintain blood sugars less 140 fasting and less than 200 after meals. Patient will continue with his current medication-Januvia 100 mg daily. Further adjustment in his medication can be done by his PCP for diabetic control. 4. Patient with hypertension. This appears stable at this time. Patient reports patient was started on blood pressure medication. Blood pressures have been slightly low. Patient was started on metoprolol during the course of his stay. Will recommend to paty Orozco which was started as an outpatient. Will recommend to continue with metoprolol 12.5 mg 1 pill twice daily. Monitor blood pressures daily. Recommend to maintain blood pressure less than 130/80. May need to hold medication if blood pressure systolic less than 110 or heart rate less than 50. Further adjustment can be done by his PCP. 5. Patient reported severe headache. CT scan performed was unremarkable. This has improved. Recommend follow up with his PCP to further monitor and address. If this persists patient may benefit with neurology evaluation as an outpatient. 6. Patient with obstructive sleep apnea. Patient has lost a significant amount await over the past year. Recommend follow up with pulmonology as an outpatient to further evaluate. Patient will likely require sleep study. This can be done with the help of his PCP. 7. Patient with mixed hyperlipidemia. Triglycerides 193. LDL 45. At discharge patient will continue with his current medication-Vascepa 1 g twice daily and Lipitor 40 mg daily. Diet: ADA Activity: Ad maki Followup: Silverio Winter MD [Primary Care Provider] - Time spent managing pt's care (in minutes): 55
--- NOTE | 2020-04-22 08:33 | RAD REPORT ---
EXAM DESCRIPTION: Clari Single View04/21/2020 9:50 pm CLINICAL HISTORY: Chest pain COMPARISON: 2013 FINDINGS: Right upper lobe mildly hazy. The left lung appears clear of acute infiltrate. The heart i s normal size IMPRESSION: Right upper lobe is mildly hazy which may indicate a mild infiltrate
[2020-04-22] MEDS ORDERED: ASPIRIN EC 81 MG TAB PO SCH (09:00)
[2020-04-22] MEDS ORDERED: ENOXAPARIN 40 MG/0.4 ML SQ SCH (09:00)
[2020-04-22] MEDS ORDERED: icosapent ethyL 1 GM CAP PO SCH (09:00)
--- NOTE | 2020-04-22 10:27 | RAD REPORT ---
EXAM DESCRIPTION: RADCherylet Pa And Lat (2 Views)04/22/2020 10:21 am CLINICAL HISTORY: Chest pain COMPARISON: April 21, 2020 FINDINGS: Mild right upper lobe opacity has partially resolved. Left lung appears clear. Heart is normal size
[2020-04-22 14:16] VITALS: BP 140/74; TEMP 96.7
[2020-04-22] MEDS ORDERED: ATORVASTATIN 40 MG TAB PO SCH (21:00)
--- NOTE | 2020-04-23 14:30 | CON ---
Date of Consultation: 04/22/2020 Reason For Consultation: Chest pain. History Of Present Illness: This is a 54-year-old male, obese, history of diabetes, dyslipidemia, pr esented with chest pain started at work, retrosternal, feels like somebody punched him on his chest, associated with some shortness of breath, no radiation and not related to the exertion. No recent ca rdiac workup was done. The patient is chest pain free at time of evaluation. No other complaints. Past Medical History: Hypertension, dyslipidemia, diabetes, obstructive sleep apnea. Medications: Refer to reconciliation sheet for detailed list. Allergies: NO KNOWN DRUG ALLERGIES. Social History: Does not smoke or drink. Does not use any drugs. Family History: No premature coronary artery disease or cancer. Review of Systems: All systems were reviewed and they were negative except what mentioned in the HPI. Physical Examination: Vital Signs: Temperature 97.2, pulse 73, breathing 18, blood pressure 106/59, saturating 96% on room air. General: Pleasant, middle-aged male, morbidly obese. No apparent distress. Head and Neck: Pupils are equal, reactive to light. Intact eye movements. No JVD. No cervical lym phadenopathy. Neck is supple. Thyroid is not enlarged. Lungs: Clear to auscultation bilaterally. No rhonchi, rales, or crackles. No accessory muscle use. Heart: Regular rate and rhythm. No extra sounds. Abdomen: Soft, nontender. Bowel sounds positive. No organomegaly. No masses or hernia. No rigidi ty or rebound. Extremities: No edema, clubbing, cyanosis. Intact pulses. Skin: No rash noted. Neurologic: Alert, awake, oriented x3. No acute focal deficits appreciated. Investigations: Troponin's are negative. EKG without acute specific abnormalities. Assessment/plan: Chest pain, it is atypical cardiac enzymes are negative. From my standp oint, the patient is okay to be discharged and follow up as an outpatient for an exercise stress test and echocardiogram. Report recurrence in the emergency room and I recommend baby aspirin 81 mg javi y and high-dose statin and follow up in the office in 1-2 weeks post discharge. SR/MODL Voice ID: [id number] Report ID: [id number]
== END 2020-04-22 13:20 | disposition home or self-care (01) ==
LOC: ER 19:50 → ERHOLD 22:27 → 2ND 04-22 08:27
PROVIDERS: ADMIT Family Medicine; ATTEND Family Medicine
DX: J18.9 Pneumonia, unspecified organism (principal); I10 Essential (primary) hypertension; E11.9 Type 2 diabetes mellitus without complications; E78.2 Mixed hyperlipidemia; G47.33 Obstructive sleep apnea (adult) (pediatric); Z20.828 Contact with and (suspected) exposure to other viral communicable diseases; R94.31 Abnormal electrocardiogram [ECG] [EKG]; Z79.84 Long term (current) use of oral hypoglycemic drugs; R51.9 Headache, unspecified
CPT/HCPCS: 93005; 85025 ×2; 80048 ×2; 36415; 83735 ×2; 85610; 80061; 82947 ×2; 80076; 84443; 83036; 84484 ×3; 84439; 83880; 70450; 71045; 71046; 99285; U0003; J1650